=== PATIENT | male | born 1955 | race Caucasian/White ===

== ENCOUNTER 2018-08-08 06:07 | Outpatient (CLI) | payer OTHER ==
[2018-08-08 07:25] LABS: eGFR (Non-African) > 60
== END 2018-08-08 06:09 ==
LOC: LAB 06:07
PROVIDERS: ATTEND Family Medicine
DX: C22.9 Malignant neoplasm of liver, not specified as primary or secondary (principal); I25.10 Atherosclerotic heart disease of native coronary artery without angina pectoris
CPT/HCPCS: 80053; 85025

== ENCOUNTER 2019-07-26 17:21 | Emergency (ER) | payer OTHER ==
--- NOTE | 2019-07-26 17:23 | ED Physician Documentation ---
Animal Bite - HISTORIAN Historian: patient - HPI Stated Complaint: dog bite (his own dog) last night Chief Complaint: Animal Bite Onset: yesterday (1) Where: home Animal: dog Appearance of Animal: appeared well Animal's Immunization Status: UTD Observation/ Capture of Animal: animal is known Context of Attack: "provoked" attack (playing rough) Severity of Injury: scratched, bitten Location of Injury: R lower extremity Associated Symptoms: none Further Comments: yes (He was playing with the dog and the dog went for the toy and this was by his leg) - ROS CONST: none - PAST HX Past History: none Immunizations: UTD Home Medications: Ambulatory Orders Medication Instructions Recorded Atorvastatin Calcium [Lipitor] 1 tab PO DAILY 07/26/19 Clopidogrel Bisulfate [Plavix] 1 tab PO DAILY 07/26/19 Metoprolol Tartrate [Lopressor] 1 tab PO DAILY 07/26/19 - SOCIAL HX Smoking History: cigarettes Alcohol Use: none Drug Use: none - FAMILY HX Family History: none - VITAL SIGNS Vital Signs: Vital Signs Temp Pulse Resp BP Pulse Ox 99 H 15 152/68 98 07/26/19 17:43 07/26/19 17:43 07/26/19 17:43 07/26/19 17:43 - REVIEWED ASSESSMENTS Nursing Assessment Reviewed: Yes Vitals Reviewed: Yes Animal Bite Physical Exam - Physical Exam General Appearance: no acute distress, alert Skin: other (left lower leg approx 3 cm red and crusted area - bruise extending around the area approx 4 cm in size 3 small abrasions lateral to open area ) Neuro/Vascular/Tendon: no vascular compromise Psych: mood/affect nml HEENT: atraumatic Neck: uninjured, nml inspection Resp/CVS: chest non-tender, breath sounds nml, heart sounds nml, no resp. distress, lungs clear Abdomen: uninjured,nml inspection Back: uninjured, nml inspection Extremities: uninjured, nml inspection Discharge Clincal Impression: Dog bite Qualifiers: Encounter type: initial encounter Qualified Code(s): W54.0XXA - Bitten by dog, initial encounter Referrals: Sonny Ma MD [Primary Care Provider] - 2 Days Comments: 1. Augmentin 875/125mg take 1 by mouth twice daily x 10 days 2. Keep area clean and dry 3. OTC meds as directed as needed for pain 4. Return to ER for any increasing concerns Condition: Stable Decision to Admit: NO Date of Decison to Admit: 07/26/19 Decision Time: 17:34
[2019-07-26 17:31] VITALS: BP 152/68
== END 2019-07-26 17:43 ==
LOC: ED 17:21
DX: S81.851A Open bite, right lower leg, initial encounter (principal); W54.0XXA Bitten by dog, initial encounter
CPT/HCPCS: 99281; 99282